=== PATIENT | female | born 1930 | race Caucasian/White ===

== ENCOUNTER → 2017-02-27 | Outpatient (CLI) | payer MEDICARE, OTHER ==
--- NOTE | 2017-02-27 15:25 | RADRPT ---
PROCEDURE: XR right knee. CLINICAL INDICATION: Knee pain TECHNIQUE: AP weightbearing, PA weightbearing, lateral weightbearing and sunrise views are availab le for review. COMPARISON: None available FINDINGS: There is severe osteoarthrosis involving the lateral tibial femoral compartment and mild osteoarthro sis involving the patellofemoral compartment and the medial tibial femoral compartment. This is asso ciated with joint space narrowing, subchondral sclerosis and osteophytosis. There is diffuse osteope gualberto. No fractures are identified. No osseous lesions are identified. The soft tissues are unremar kable. There is a small suprapatellar joint effusion IMPRESSION: Diffuse osteopenia Severe osteoarthrosis involving the lateral tibial femoral compartment and mild osteoarthrosis invol ving the patellofemoral compartment and the medial tibial femoral compartment. Small suprapatellar joint effusion RPTAT: [facility] .Vern Nova MD, Date Time Electronically viewed and signed by .Vern Nova MD, on 02/27/2017 15:25 .B/
== END | disposition home or self-care (01) ==
LOC: HKI 14:28
PROVIDERS: ATTEND Orthopaedic Surgery
DX: M17.11 Unilateral primary osteoarthritis, right knee (principal); Z87.828 Personal history of other (healed) physical injury and trauma; M21.061 Valgus deformity, not elsewhere classified, right knee
CPT/HCPCS: 20610; G0463; J7327

== ENCOUNTER 2017-12-21 21:16 | Inpatient (IN) | END 2017-12-22 11:40 | disposition home health service (06) | DRG 689 ==